=== PATIENT | female | born 1945 | race Caucasian/White ===

== ENCOUNTER 2016-12-27 09:57 | Outpatient (CLI) | payer OTHER, MEDICAID ==
[~2016-12-27 09:57] MED LIST: ASA81 PO; CARV12.548 PO; LISI-600 PO
== END 2016-12-27 20:00 | disposition home or self-care (01) ==
LOC: SRD 09:57
PROVIDERS: ATTEND Family Medicine
DX: S92.312A Displaced fracture of first metatarsal bone, left foot, initial encounter for closed fracture (principal); M21.072 Valgus deformity, not elsewhere classified, left ankle; X58.XXXA Exposure to other specified factors, initial encounter; Y93.89 Activity, other specified; Y92.89 Other specified places as the place of occurrence of the external cause; Y99.8 Other external cause status

== ENCOUNTER 2017-09-14 14:31 | Emergency (ER) | payer OTHER, MEDICAID ==
[~2017-09-14] VITALS: Ht 149.9 cm; Wt 59.4 kg
[2017-09-14 14:42] VITALS: BP_SYST 208
[2017-09-14] MEDS ORDERED: BUDE6HFA INH (14:44)
[2017-09-14] MEDS ORDERED: VALS160T2 PO (14:44)
[2017-09-14] MEDS ORDERED: HYDR-4039 PO (14:44)
[2017-09-14 15:16] LABS: BILIRUBIN,URINE NEGATIVE (NEGATIVE); BLOOD, URINE NEGATIVE (NEGATIVE); CLARITY/URINE HAZY (CLEAR); COLOR,URINE YELLOW (YELLOW); GLUCOSE,URINE NEGATIVE (NEGATIVE); KETONES,URINE NEGATIVE (NEGATIVE); LEUKOCYTE ESTERASE ,URINE NEGATIVE (NEGATIVE); NITRITE, URINE POSITIVE (NEGATIVE); PROTEIN URINE NEGATIVE (NEGATIVE); UROBILINOGEN,URINE 0.2 (0.2-1.0)
[2017-09-14 15:19] LABS: BACTERIA,URINE MANY /HPF (None Seen); RBC,URINE 0-3 /HPF (0-3); WBC,URINE 0-3 /HPF (0-3)
[2017-09-14 15:20] LABS: MUCUS,URINE None Seen /LPF (None Seen)
[2017-09-14 16:04] VITALS: BP_SYST 161
== END 2017-09-14 16:04 | disposition home or self-care (01) ==
LOC: SED 14:31
DX: N39.0 Urinary tract infection, site not specified (principal); J44.9 Chronic obstructive pulmonary disease, unspecified; I10 Essential (primary) hypertension; Z96.649 Presence of unspecified artificial hip joint; Z79.899 Other long term (current) drug therapy
CPT/HCPCS: 81000-TC; 87086; 93005; 99285

== ENCOUNTER 2018-12-26 15:09 | Emergency (ER) | payer OTHER, MEDICAID ==
[~2018-12-26] VITALS: Ht 149.9 cm; Wt 56.7 kg
[~2018-12-26 15:09] MED LIST changes: +BUDE6HFA INH; +HYDR-4039 PO; +VALS160T2 PO
[2018-12-26 15:18] VITALS: BP_SYST 173
[2018-12-26] MEDS ORDERED: MAG HYDROX/AL HYDROX/SIMETH 30 ML, DICYCLOMINE HCL 20 MG, LIDOCAINE VISCOUS 2% 15ML (PO... PO ONE ×3 (15:30)
--- NOTE | 2018-12-26 15:32 | NUR ---
Patient to ER bed 8 to gown for evaluation. Side rails up. Report given to Lakia BEYER.
--- NOTE | 2018-12-26 15:33 | NUR ---
Pt is here for c/o epigastic, throat pain since this morning, states she felt like a ball in her throat. Denied any trouble swallowing. Respirations even and unlabored, no respiratory distress noted. VSS. Pt is awaiting for Md richards.
--- NOTE | 2018-12-26 15:34 | NUR ---
Dr. Lynn at bedside to asses pt.
[2018-12-26] MEDS ORDERED: KETOROLAC TROMETHAMINE 60 MG/2 ML VIAL IM ONE (15:45)
[2018-12-26 17:35] VITALS: BP_SYST 145
--- NOTE | 2018-12-26 17:35 | NUR ---
Patient given written and verbal discharge instructions and verbalizes understanding. ER MD discussed with patient the results and treatment provided. Patient in stable condition. ID arm band removed.Rx of [place] 5-325mg given. Opportunity for questions provided and answered. Medication side effect fact sheet provided.
== END 2018-12-26 17:35 | disposition home or self-care (01) ==
LOC: SED 15:09
DX: K21.9 Gastro-esophageal reflux disease without esophagitis (principal); R51 Headache; J44.9 Chronic obstructive pulmonary disease, unspecified; I10 Essential (primary) hypertension; Z91.018 Allergy to other foods; Z79.899 Other long term (current) drug therapy
CPT/HCPCS: 96372; 99283; J1885; J2001

== ENCOUNTER 2020-12-12 11:37 | Inpatient (IN) | payer OTHER, MEDICAID, SELFPAY ==
[~2020-12-12] VITALS: Ht 149.9 cm; Wt 53.1 kg
[~2020-12-12 11:37] MED LIST changes: +ALPR0.25 PO; -ASA81 PO; -CARV12.548 PO; +COR25 PO; +FIORICET PO; -LISI-600 PO; +LOSA50TA3 PO; +TRAZ-250 PO; -VALS160T2 PO
[2020-12-12 11:52] VITALS: BP_SYST 167
[2020-12-12] MEDS ORDERED: KETOROLAC TROMETHAMINE 30 MG VIAL IVP ONE (12:15)
[2020-12-12 12:32] LABS: BASOPHILS % (AUTO) 0.7 % (0.0-2.0); EOSINOPHILS # (AUTO) 0.3 K/uL (0.0-0.4); HEMATOCRIT 31.7 % (36-48); HEMOGLOBIN 10.9 g/dL (12.0-16.0); LYMPHOCYTES # (AUTO) 1.1 K/uL (1.0-5.5); LYMPHOCYTES % (AUTO) 16.1 % (20.5-51.5); MEAN CORPUSCULAR HEMOGLOBIN 30 pg (27-31); MEAN CORPUSCULAR HGB CONC 34 % (32-36); MEAN CORPUSCULAR VOLUME 89 fL (79.0-98.0); MONOCYTES # (AUTO) 0.5 K/uL (0.0-1.0); MONOCYTES % (AUTO) 7.1 % (1.7-9.3); NEUTROPHILS # (AUTO) 4.8 K/uL (1.8-7.7); NEUTROPHILS % (AUTO) 72.1 % (40.0-70.0); PLATELET COUNT (AUTO) 132 K/uL (130-430); RED BLOOD CELL COUNT(AUTO) 3.58 MIL/uL (4.2-6.2); RED CELL DISTRIBUTION WIDTH 13.8 % (9.0-15.0); WHITE BLOOD COUNT (AUTO) 6.7 K/uL (4.8-10.8)
[2020-12-12 12:46] LABS: ANION GAP 7 (5-15); CALCIUM 9.5 mg/dL (8.4-11.0); CHLORIDE 90 mmol/L (98-107); CREATININE 0.77 mg/dL (0.55-1.30); GLUCOSE 118 mg/dL (70-99); POTASSIUM 4.1 mmol/L (3.5-5.1); SODIUM SERUM 124 mmol/L (136-145); UREA NITROGEN, BLOOD 12 mg/dL (8-21)
[2020-12-12 12:52] LABS: ALANINE AMINOTRANSFERASE 18 U/L (12-78); ALBUMIN 3.5 g/dL (3.4-4.8); ASPARTATE AMINOTRANSFERASE 20 U/L (10-37); LIPASE 79 U/L (73-393); TOTAL BILIRUBIN 0.6 mg/dL (0.0-1.0)
[2020-12-12] MEDS ORDERED: methylPREDNISolone SOD SUCC/PF 62.5 MG/ML VIAL IVP ONE ×2 (13:00→14:00)
[2020-12-12] MEDS ORDERED: IPRATROPIUM/ALBUTEROL SULFATE 3 ML AMPUL.NEB (DUONEB) INH ONE (13:00)
[2020-12-12] MEDS ORDERED: IPRATROPIUM/ALBUTEROL SULFATE 3 ML AMPUL.NEB (DUONEB) ONE (13:15)
[2020-12-12] MEDS ORDERED: FIORCET PO PRN (14:00)
[2020-12-12] MEDS ORDERED: LevALBUTEROL HCL 1.25 MG/0.5 ML *CONC.* VIAL.NEB (XOPENEX CONC.) INH ONE (14:00)
[2020-12-12] MEDS ORDERED: ASPIRIN 81 MG TABLET(ECOTRIN) PO ONE (14:00)
[2020-12-12] MEDS ORDERED: LevALBUTEROL HCL 1.25 MG/0.5 ML *CONC.* VIAL.NEB (XOPENEX CONC.) INH PRN (14:00)
[2020-12-12] MEDS ORDERED: ALPRAZolam 0.25 MG TABLET PO PRN (14:00)
[2020-12-12 14:34] VITALS: BP_SYST 167
[2020-12-12] MEDS ORDERED: hydrALAZINE HCL 25 MG TABLET PO ONE (15:00)
[2020-12-12 16:05] VITALS: BP_SYST 147
[2020-12-12 21:00] VITALS: BP_SYST 139
[2020-12-12] MEDS ORDERED: methylPREDNISolone SOD SUCC/PF 62.5 MG/ML VIAL IVP SCH (22:00)
[2020-12-12 22:22] LABS: BILIRUBIN,URINE NEGATIVE (NEGATIVE); BLOOD, URINE NEGATIVE (NEGATIVE); COLOR,URINE YELLOW (YELLOW); GLUCOSE,URINE NEGATIVE (NEGATIVE); KETONES,URINE NEGATIVE (NEGATIVE); LEUKOCYTE ESTERASE ,URINE TRACE (NEGATIVE); NITRITE, URINE NEGATIVE (NEGATIVE); PROTEIN URINE NEGATIVE (NEGATIVE)
[2020-12-12 22:25] LABS: CLARITY/URINE HAZY (CLEAR)
[2020-12-12] MEDS: traZODone HCL 50 MG TABLET (DESYREL) PO SCH (22:31)
[2020-12-12] MEDS: CARVEDILOL 25 MG TABLET (COREG) PO SCH (22:31)
[2020-12-12] MEDS: FUROSEMIDE 20 MG/2 ML VIAL IVP SCH (22:31)
[2020-12-12] MEDS: hydrALAZINE HCL 25 MG TABLET PO SCH (22:32)
[2020-12-12] MEDS: LOSARTAN POTASSIUM 50 MG TABLET (COZAAR) PO SCH (22:32)
[2020-12-12] MEDS: ENOXAPARIN SODIUM 40 MG/0.4 ML SYRINGE SUBCUT SCH (22:34)
[2020-12-12 22:40] LABS: BACTERIA,URINE MODERATE /HPF (None Seen); RBC,URINE 0-3 /HPF (0-3); WBC,URINE 20-50 /HPF (0-3)
[2020-12-12 22:41] LABS: MUCUS,URINE 1+ /LPF (None Seen)
[2020-12-12] MEDS: BUDESONIDE 0.5 MG/2 ML AMPUL.NEB INH SCH (23:00)
[2020-12-12] MEDS: LevALBUTEROL HCL 1.25 MG/0.5 ML *CONC.* VIAL.NEB (XOPENEX CONC.) INH SCH (23:00)
[2020-12-13 01:09] VITALS: BP_SYST 121
[2020-12-13 06:38] LABS: BASOPHILS % (AUTO) 0.1 % (0.0-2.0); HEMATOCRIT 31.9 % (36-48); HEMOGLOBIN 10.9 g/dL (12.0-16.0); LYMPHOCYTES # (AUTO) 0.8 K/uL (1.0-5.5); LYMPHOCYTES % (AUTO) 17.6 % (20.5-51.5); MEAN CORPUSCULAR HEMOGLOBIN 30 pg (27-31); MEAN CORPUSCULAR HGB CONC 34 % (32-36); MEAN CORPUSCULAR VOLUME 88 fL (79.0-98.0); MONOCYTES # (AUTO) 0.1 K/uL (0.0-1.0); NEUTROPHILS # (AUTO) 3.5 K/uL (1.8-7.7); NEUTROPHILS % (AUTO) 79.3 % (40.0-70.0); PLATELET COUNT (AUTO) 138 K/uL (130-430); RED BLOOD CELL COUNT(AUTO) 3.62 MIL/uL (4.2-6.2); RED CELL DISTRIBUTION WIDTH 13.9 % (9.0-15.0); WHITE BLOOD COUNT (AUTO) 4.5 K/uL (4.8-10.8)
[2020-12-13 07:10] LABS: ALANINE AMINOTRANSFERASE 21 U/L (12-78); ALBUMIN 3.4 g/dL (3.4-4.8); ANION GAP 8 (5-15); ASPARTATE AMINOTRANSFERASE 19 U/L (10-37); CALCIUM 9.3 mg/dL (8.4-11.0); CHLORIDE 94 mmol/L (98-107); CREATININE 0.73 mg/dL (0.55-1.30); GLUCOSE 123 mg/dL (70-99); POTASSIUM 3.8 mmol/L (3.5-5.1); SODIUM SERUM 132 mmol/L (136-145); THYROID STIMULATING HORMONE 0.37 uIu/mL (0.36-3.74); TOTAL BILIRUBIN 0.5 mg/dL (0.0-1.0); UREA NITROGEN, BLOOD 13 mg/dL (8-21)
[2020-12-13] MEDS: LevALBUTEROL HCL 1.25 MG/0.5 ML *CONC.* VIAL.NEB (XOPENEX CONC.) INH SCH ×3 (07:41→23:44)
[2020-12-13] MEDS: BUDESONIDE 0.5 MG/2 ML AMPUL.NEB INH SCH ×3 (07:41→19:49)
[2020-12-13 07:48] LABS: CHOLESTEROL 153 mg/dL (<200); HDL CHOLESTEROL 70 mg/dL (>55); LDL CHOLESTEROL 75 mg/dL (<100); TRIGLYCERIDES 64 mg/dL (30-150)
[2020-12-13 08:00] VITALS: BP_SYST 111
[2020-12-13] MEDS: hydrALAZINE HCL 25 MG TABLET PO SCH ×3 (08:55→21:39)
[2020-12-13] MEDS: ASPIRIN 81 MG TABLET(ECOTRIN) PO SCH (09:02)
[2020-12-13] MEDS: CARVEDILOL 25 MG TABLET (COREG) PO SCH ×2 (09:02→21:39)
[2020-12-13] MEDS: LOSARTAN POTASSIUM 50 MG TABLET (COZAAR) PO SCH ×2 (09:02→21:38)
[2020-12-13] MEDS: FUROSEMIDE 20 MG/2 ML VIAL IVP SCH ×2 (09:03→21:38)
[2020-12-13 12:00] VITALS: BP_SYST 131
[2020-12-13] MEDS: ACETAMINOPHEN 500 MG TABLET PO PRN (15:34)
[2020-12-13 16:00] VITALS: BP_SYST 111
[2020-12-13 20:00] VITALS: BP_SYST 146
[2020-12-13] MEDS ORDERED: methylPREDNISolone SOD SUCC 40 MG/ML VIAL IVP SCH (21:00)
[2020-12-13] MEDS: ENOXAPARIN SODIUM 40 MG/0.4 ML SYRINGE SUBCUT SCH (21:34)
[2020-12-13] MEDS: traZODone HCL 50 MG TABLET (DESYREL) PO SCH (21:39)
[2020-12-14 01:26] VITALS: BP_SYST 139
[2020-12-14 07:05] LABS: ANION GAP 6 (5-15); CALCIUM 9.2 mg/dL (8.4-11.0); CHLORIDE 93 mmol/L (98-107); CREATININE 0.81 mg/dL (0.55-1.30); GLUCOSE 126 mg/dL (70-99); POTASSIUM 3.8 mmol/L (3.5-5.1); SODIUM SERUM 133 mmol/L (136-145); UREA NITROGEN, BLOOD 18 mg/dL (8-21)
[2020-12-14] MEDS: LevALBUTEROL HCL 1.25 MG/0.5 ML *CONC.* VIAL.NEB (XOPENEX CONC.) INH SCH ×3 (07:39→23:23)
[2020-12-14] MEDS: BUDESONIDE 0.5 MG/2 ML AMPUL.NEB INH SCH ×2 (07:40→23:23)
[2020-12-14 08:00] VITALS: BP_SYST 131
[2020-12-14] MEDS: hydrALAZINE HCL 25 MG TABLET PO SCH ×3 (08:52→20:49)
[2020-12-14] MEDS: LOSARTAN POTASSIUM 50 MG TABLET (COZAAR) PO SCH ×2 (08:54→20:50)
[2020-12-14] MEDS: ASPIRIN 81 MG TABLET(ECOTRIN) PO SCH (08:54)
[2020-12-14] MEDS: CARVEDILOL 25 MG TABLET (COREG) PO SCH ×2 (08:54→20:50)
[2020-12-14] MEDS: predniSONE 20 MG TABLET PO SCH (09:00)
[2020-12-14] MEDS: FUROSEMIDE 40 MG TABLET PO SCH (09:00)
[2020-12-14 12:50] VITALS: BP_SYST 135
[2020-12-14] MEDS: ACETAMINOPHEN 500 MG TABLET PO PRN ×2 (13:02→20:51)
[2020-12-14 16:00] VITALS: BP_SYST 142
[2020-12-14 20:00] VITALS: BP_SYST 148
[2020-12-14] MEDS: traZODone HCL 50 MG TABLET (DESYREL) PO SCH (20:49)
[2020-12-14] MEDS: ENOXAPARIN SODIUM 40 MG/0.4 ML SYRINGE SUBCUT SCH (20:55)
[2020-12-15 00:01] VITALS: BP_SYST 134
[2020-12-15] MEDS: LevALBUTEROL HCL 1.25 MG/0.5 ML *CONC.* VIAL.NEB (XOPENEX CONC.) INH SCH ×3 (07:33→22:55)
[2020-12-15] MEDS: BUDESONIDE 0.5 MG/2 ML AMPUL.NEB INH SCH ×2 (07:34→19:38)
[2020-12-15 08:00] VITALS: BP_SYST 138
[2020-12-15] MEDS: hydrALAZINE HCL 25 MG TABLET PO SCH ×3 (08:39→20:50)
[2020-12-15] MEDS: predniSONE 20 MG TABLET PO SCH (08:39)
[2020-12-15] MEDS: ASPIRIN 81 MG TABLET(ECOTRIN) PO SCH (08:39)
[2020-12-15] MEDS: LOSARTAN POTASSIUM 50 MG TABLET (COZAAR) PO SCH ×2 (08:39→20:49)
[2020-12-15] MEDS: FUROSEMIDE 40 MG TABLET PO SCH (08:41)
[2020-12-15] MEDS: CARVEDILOL 25 MG TABLET (COREG) PO SCH ×2 (08:41→20:49)
[2020-12-15 09:05] VITALS: BP_SYST 134
[2020-12-15 12:59] VITALS: BP_SYST 100
[2020-12-15 16:27] VITALS: BP_SYST 137
[2020-12-15] MEDS: ACETAMINOPHEN 500 MG TABLET PO PRN (18:33)
[2020-12-15 20:00] VITALS: BP_SYST 125
[2020-12-15] MEDS ORDERED: SODIUM CHLORIDE 0.65% NASAL SPRAY NS PRN (20:30)
[2020-12-15] MEDS: traZODone HCL 50 MG TABLET (DESYREL) PO SCH (20:49)
[2020-12-15] MEDS: ENOXAPARIN SODIUM 40 MG/0.4 ML SYRINGE SUBCUT SCH (20:51)
[2020-12-16 00:49] VITALS: BP_SYST 99
[2020-12-16 06:40] LABS: BASOPHILS % (AUTO) 0.2 % (0.0-2.0); EOSINOPHILS % (AUTO) 0.2 % (0.0-4.0); HEMATOCRIT 36.5 % (36-48); HEMOGLOBIN 12.1 g/dL (12.0-16.0); LYMPHOCYTES # (AUTO) 1.8 K/uL (1.0-5.5); LYMPHOCYTES % (AUTO) 25.8 % (20.5-51.5); MEAN CORPUSCULAR HEMOGLOBIN 30 pg (27-31); MEAN CORPUSCULAR HGB CONC 33 % (32-36); MEAN CORPUSCULAR VOLUME 90 fL (79.0-98.0); MONOCYTES # (AUTO) 0.7 K/uL (0.0-1.0); MONOCYTES % (AUTO) 9.3 % (1.7-9.3); NEUTROPHILS # (AUTO) 4.5 K/uL (1.8-7.7); NEUTROPHILS % (AUTO) 64.5 % (40.0-70.0); PLATELET COUNT (AUTO) 175 K/uL (130-430); RED BLOOD CELL COUNT(AUTO) 4.07 MIL/uL (4.2-6.2); RED CELL DISTRIBUTION WIDTH 14.2 % (9.0-15.0)
[2020-12-16 06:56] LABS: ANION GAP 8 (5-15); CALCIUM 9.3 mg/dL (8.4-11.0); CHLORIDE 93 mmol/L (98-107); CREATININE 0.75 mg/dL (0.55-1.30); GLUCOSE 88 mg/dL (70-99); POTASSIUM 3.4 mmol/L (3.5-5.1); SODIUM SERUM 136 mmol/L (136-145); UREA NITROGEN, BLOOD 28 mg/dL (8-21)
[2020-12-16] MEDS: LevALBUTEROL HCL 1.25 MG/0.5 ML *CONC.* VIAL.NEB (XOPENEX CONC.) INH SCH ×3 (07:25→23:50)
[2020-12-16] MEDS: BUDESONIDE 0.5 MG/2 ML AMPUL.NEB INH SCH ×2 (07:25→21:10)
[2020-12-16 08:00] VITALS: BP_SYST 134
[2020-12-16] MEDS: LOSARTAN POTASSIUM 50 MG TABLET (COZAAR) PO SCH ×2 (08:14→21:13)
[2020-12-16] MEDS: ASPIRIN 81 MG TABLET(ECOTRIN) PO SCH (08:14)
[2020-12-16] MEDS: hydrALAZINE HCL 25 MG TABLET PO SCH ×3 (08:15→21:13)
[2020-12-16] MEDS: FUROSEMIDE 40 MG TABLET PO SCH (08:15)
[2020-12-16] MEDS: predniSONE 20 MG TABLET PO SCH (08:16)
[2020-12-16] MEDS: CARVEDILOL 25 MG TABLET (COREG) PO SCH ×2 (08:16→21:14)
[2020-12-16] MEDS ORDERED: BUDESONIDE/FORMOTEROL 160-4.5 mCg, 6 GM INHALER INH SCH (09:00)
[2020-12-16] MEDS: ACETAMINOPHEN 500 MG TABLET PO PRN (09:31)
[2020-12-16 12:00] VITALS: BP_SYST 112
[2020-12-16 16:00] VITALS: BP_SYST 124
[2020-12-16 20:00] VITALS: BP_SYST 137
[2020-12-16] MEDS: traZODone HCL 50 MG TABLET (DESYREL) PO SCH (21:12)
[2020-12-16] MEDS: ENOXAPARIN SODIUM 40 MG/0.4 ML SYRINGE SUBCUT SCH (21:15)
[2020-12-17 00:22] VITALS: BP_SYST 130
[2020-12-17 06:47] LABS: BASOPHILS % (AUTO) 0.1 % (0.0-2.0); EOSINOPHILS % (AUTO) 0.5 % (0.0-4.0); HEMATOCRIT 33.1 % (36-48); HEMOGLOBIN 11.3 g/dL (12.0-16.0); LYMPHOCYTES # (AUTO) 1.8 K/uL (1.0-5.5); LYMPHOCYTES % (AUTO) 28.9 % (20.5-51.5); MEAN CORPUSCULAR HEMOGLOBIN 30 pg (27-31); MEAN CORPUSCULAR HGB CONC 34 % (32-36); MEAN CORPUSCULAR VOLUME 89 fL (79.0-98.0); MONOCYTES # (AUTO) 0.5 K/uL (0.0-1.0); MONOCYTES % (AUTO) 8.3 % (1.7-9.3); NEUTROPHILS # (AUTO) 3.9 K/uL (1.8-7.7); NEUTROPHILS % (AUTO) 62.2 % (40.0-70.0); PLATELET COUNT (AUTO) 148 K/uL (130-430); RED CELL DISTRIBUTION WIDTH 13.9 % (9.0-15.0); WHITE BLOOD COUNT (AUTO) 6.2 K/uL (4.8-10.8)
[2020-12-17] MEDS: BUDESONIDE 0.5 MG/2 ML AMPUL.NEB INH SCH ×2 (07:00→21:11)
[2020-12-17] MEDS: LevALBUTEROL HCL 1.25 MG/0.5 ML *CONC.* VIAL.NEB (XOPENEX CONC.) INH SCH ×3 (07:20→23:00)
[2020-12-17 07:26] LABS: ALANINE AMINOTRANSFERASE 16 U/L (12-78); ALBUMIN 3.2 g/dL (3.4-4.8); ANION GAP 3 (5-15); ASPARTATE AMINOTRANSFERASE 17 U/L (10-37); CALCIUM 8.9 mg/dL (8.4-11.0); CHLORIDE 94 mmol/L (98-107); CREATININE 0.72 mg/dL (0.55-1.30); GLUCOSE 88 mg/dL (70-99); POTASSIUM 3.3 mmol/L (3.5-5.1); SODIUM SERUM 134 mmol/L (136-145); TOTAL BILIRUBIN 0.4 mg/dL (0.0-1.0); UREA NITROGEN, BLOOD 23 mg/dL (8-21)
[2020-12-17 08:00] VITALS: BP_SYST 136
[2020-12-17] MEDS: predniSONE 20 MG TABLET PO SCH (09:02)
[2020-12-17] MEDS: ASPIRIN 81 MG TABLET(ECOTRIN) PO SCH (09:02)
[2020-12-17] MEDS: LOSARTAN POTASSIUM 50 MG TABLET (COZAAR) PO SCH ×2 (09:03→21:44)
[2020-12-17] MEDS: CARVEDILOL 25 MG TABLET (COREG) PO SCH ×2 (09:04→21:44)
[2020-12-17] MEDS: hydrALAZINE HCL 25 MG TABLET PO SCH ×3 (09:04→21:44)
[2020-12-17] MEDS: FUROSEMIDE 40 MG TABLET PO SCH (09:05)
[2020-12-17] MEDS: ACETAMINOPHEN 500 MG TABLET PO PRN ×2 (10:26→17:53)
[2020-12-17 12:13] VITALS: BP_SYST 115
[2020-12-17] MEDS ORDERED: POTASSIUM CHLORIDE 20 MEQ TAB.PRT.SR PO ONE (12:30)
[2020-12-17 16:12] VITALS: BP_SYST 130
[2020-12-17 21:00] VITALS: BP_SYST 179
[2020-12-17] MEDS: ENOXAPARIN SODIUM 40 MG/0.4 ML SYRINGE SUBCUT SCH (21:43)
[2020-12-17] MEDS: traZODone HCL 50 MG TABLET (DESYREL) PO SCH (21:45)
[2020-12-18 01:05] VITALS: BP_SYST 132
[2020-12-18 06:46] LABS: BASOPHILS % (AUTO) 0.2 % (0.0-2.0); EOSINOPHILS % (AUTO) 0.3 % (0.0-4.0); HEMATOCRIT 32.4 % (36-48); LYMPHOCYTES # (AUTO) 1.8 K/uL (1.0-5.5); MEAN CORPUSCULAR HEMOGLOBIN 30 pg (27-31); MEAN CORPUSCULAR HGB CONC 34 % (32-36); MEAN CORPUSCULAR VOLUME 90 fL (79.0-98.0); MONOCYTES # (AUTO) 0.4 K/uL (0.0-1.0); MONOCYTES % (AUTO) 7.2 % (1.7-9.3); NEUTROPHILS # (AUTO) 3.6 K/uL (1.8-7.7); NEUTROPHILS % (AUTO) 61.3 % (40.0-70.0); PLATELET COUNT (AUTO) 137 K/uL (130-430); RED BLOOD CELL COUNT(AUTO) 3.62 MIL/uL (4.2-6.2); WHITE BLOOD COUNT (AUTO) 5.9 K/uL (4.8-10.8)
[2020-12-18] MEDS: BUDESONIDE 0.5 MG/2 ML AMPUL.NEB INH SCH ×2 (07:03→19:00)
[2020-12-18] MEDS: LevALBUTEROL HCL 1.25 MG/0.5 ML *CONC.* VIAL.NEB (XOPENEX CONC.) INH SCH ×3 (07:03→23:42)
[2020-12-18 07:40] LABS: ANION GAP 5 (5-15); CHLORIDE 95 mmol/L (98-107); CREATININE 0.67 mg/dL (0.55-1.30); GLUCOSE 84 mg/dL (70-99); POTASSIUM 3.9 mmol/L (3.5-5.1); SODIUM SERUM 134 mmol/L (136-145); UREA NITROGEN, BLOOD 22 mg/dL (8-21)
[2020-12-18 08:01] VITALS: BP_SYST 150
[2020-12-18] MEDS: predniSONE 20 MG TABLET PO SCH (09:07)
[2020-12-18] MEDS: ASPIRIN 81 MG TABLET(ECOTRIN) PO SCH (09:07)
[2020-12-18] MEDS: FUROSEMIDE 40 MG TABLET PO SCH (09:07)
[2020-12-18] MEDS: CARVEDILOL 25 MG TABLET (COREG) PO SCH ×2 (09:08→21:19)
[2020-12-18] MEDS: LOSARTAN POTASSIUM 50 MG TABLET (COZAAR) PO SCH ×2 (09:08→21:21)
[2020-12-18] MEDS: hydrALAZINE HCL 25 MG TABLET PO SCH ×3 (09:09→21:20)
[2020-12-18 21:15] VITALS: BP_SYST 142
[2020-12-18] MEDS: traZODone HCL 50 MG TABLET (DESYREL) PO SCH (21:19)
[2020-12-18] MEDS: ENOXAPARIN SODIUM 40 MG/0.4 ML SYRINGE SUBCUT SCH (21:22)
[2020-12-19 03:49] VITALS: BP_SYST 137
[2020-12-19 08:01] VITALS: BP_SYST 137
[2020-12-19] MEDS: predniSONE 20 MG TABLET PO SCH (08:09)
[2020-12-19] MEDS: ASPIRIN 81 MG TABLET(ECOTRIN) PO SCH (08:09)
[2020-12-19] MEDS: LOSARTAN POTASSIUM 50 MG TABLET (COZAAR) PO SCH ×2 (08:10→20:52)
[2020-12-19] MEDS: CARVEDILOL 25 MG TABLET (COREG) PO SCH ×2 (08:10→20:53)
[2020-12-19] MEDS: hydrALAZINE HCL 25 MG TABLET PO SCH ×3 (08:11→20:52)
[2020-12-19] MEDS: FUROSEMIDE 40 MG TABLET PO SCH (08:12)
[2020-12-19] MEDS: LevALBUTEROL HCL 1.25 MG/0.5 ML *CONC.* VIAL.NEB (XOPENEX CONC.) INH SCH ×3 (08:25→23:30)
[2020-12-19] MEDS: BUDESONIDE 0.5 MG/2 ML AMPUL.NEB INH SCH ×2 (08:25→23:30)
[2020-12-19 11:32] VITALS: BP_SYST 103
[2020-12-19 15:51] VITALS: BP_SYST 99
[2020-12-19 20:00] VITALS: BP_SYST 146
[2020-12-19] MEDS: traZODone HCL 50 MG TABLET (DESYREL) PO SCH (20:53)
[2020-12-19] MEDS: ENOXAPARIN SODIUM 40 MG/0.4 ML SYRINGE SUBCUT SCH (20:58)
[2020-12-20 02:04] VITALS: BP_SYST 105
[2020-12-20] MEDS: BUDESONIDE 0.5 MG/2 ML AMPUL.NEB INH SCH ×2 (07:36→19:31)
[2020-12-20] MEDS: LevALBUTEROL HCL 1.25 MG/0.5 ML *CONC.* VIAL.NEB (XOPENEX CONC.) INH SCH ×2 (07:36→17:07)
[2020-12-20] MEDS: ASPIRIN 81 MG TABLET(ECOTRIN) PO SCH (09:57)
[2020-12-20] MEDS: CARVEDILOL 25 MG TABLET (COREG) PO SCH (09:57)
[2020-12-20] MEDS: LOSARTAN POTASSIUM 50 MG TABLET (COZAAR) PO SCH (09:58)
[2020-12-20] MEDS: FUROSEMIDE 40 MG TABLET PO SCH (09:58)
[2020-12-20] MEDS: predniSONE 20 MG TABLET PO SCH (09:58)
[2020-12-20] MEDS: hydrALAZINE HCL 25 MG TABLET PO SCH ×2 (09:58→15:15)
[2020-12-20 12:00] VITALS: BP_SYST 120
[2020-12-20 15:35] VITALS: BP_SYST 118
[2020-12-20 16:00] VITALS: BP_SYST 122
== END 2020-12-20 20:28 | disposition home health service (06) | DRG 291 ==
LOC: SED 11:37 → STU 13:15 → SMU 12-16 12:23
PROVIDERS: ADMIT Family Medicine; ATTEND Family Medicine
DX: I11.0 Hypertensive heart disease with heart failure (principal); J96.21 Acute and chronic respiratory failure with hypoxia; J44.1 Chronic obstructive pulmonary disease with (acute) exacerbation; E87.1 Hypo-osmolality and hyponatremia; G72.81 Critical illness myopathy; E85.9 Amyloidosis, unspecified; I50.41 Acute combined systolic (congestive) and diastolic (congestive) heart failure; K21.9 Gastro-esophageal reflux disease without esophagitis; D64.9 Anemia, unspecified; Z20.822 Contact with and (suspected) exposure to COVID-19; F17.200 Nicotine dependence, unspecified, uncomplicated; Z91.018 Allergy to other foods; Z79.899 Other long term (current) drug therapy
CPT/HCPCS: 36415; 36600; 70450-TC; 71045; 71250-TC; 76376; 80048; 80053; 80061; 81000; 82803-TC; 83690; 83735; 83880; 83930; 83935; 84302; 84443; 84484; 85025; 87086; 93005; 93306; 93970; 94640; 94760; 96374; 96375; 97116-GP; 97530-GP; 99291; G0378; J1030; J1650; J1885; J1940; J2930; J7512; J7612; J7626